=== PATIENT | male | born 2000 | race Caucasian/White ===

== ENCOUNTER 2025-06-02 13:16 | Emergency (ER) | payer MEDICAID, SELFPAY ==
[2025-06-02] VITALS (10 sets, daily range): BP systolic 122–162; BP diastolic 51–98; PULSE 111–145; RESP 16–24; TEMP 36.8–38.9; O2SAT 93–97; BMI 38.3
--- NOTE | ~2025-06-02 | XR_ITS ---
EXAMINATION: XR CHEST CLINICAL INFORMATION: cough COMPARISON: None available. TECHNIQUE: Frontal view of the chest was obtained. FINDINGS: The cardiac, hilar, and mediastinal contours are normal. The lungs are clear bilaterally. No pneumothorax or effusion. No focal osseous or soft tissue abnormality. XR/XR chest 1V IMPRESSION: No active pulmonary disease. Electronically signed by: Moustapha Tucker MD 06/02/2025 04:05 PM [facility]
--- NOTE | 2025-06-02 13:27 | ED_ITS ---
HPI - URI/Sore Throat General Chief Complaint: General Medical Stated Complaint: cough x1 month,weakness x1 week Time Seen by Provider: 06/02/25 15:48 Source: patient, EMS, RN notes reviewed and old records reviewed Mode of arrival: EMS Limitations: no limitations History of Present Illness ED Provider: LAVERN Mcclelland HPI Narrative: 25-year-old male with medical history of asthma presents to the ED due to 1 month of productive cough, with general malaise, body aches beginning 1 week ago. Patient states he woke up this morning feeling dizzy, With chills, and mildly short of breath after coughing fit. Patient states he is experiencing a sharp central chest pain only when coughing, patient does not have any chest pain while at rest, or with movement outside of coughing. denies headache, visual changes,abdominal pain, nausea, vomiting, diarrhea, urinary symptoms Related Data Previous Rx's ?Medication ?Instructions ?Recorded albuterol sulfate 90 mcg/actuation 2 inh inhalation Q4 H PRN shortness 06/02/25 breath activated powder inhaler of breath or wheezing #1 ea prednisone 20 mg tablet 40 mg (2 x 20 mg) PO DAILY # 10 tabs 06/02/25 Allergies Allergy/AdvReac Type Severity Reaction Status Date / Time aspirin (ASPIRIN) Allergy Unknown SWELLING Verified 06/02/25 13:30 nut - unspecified (NUTS) Allergy Unknown RASH Verified 06/02/25 13:30 zolpidem (From AMBIEN) Allergy Unknown SUICIDAL Verified 06/02/25 13:30 Review of Systems 2 Review of Systems: Yes all other systems are reviewed and are negative PMFSH Past Medical History Source: old records reviewed and nursing notes reviewed Social History Social History Smoked in Last 30 Days: Yes Use of substances other than those prescribed or required for medical reasons: Yes Substance Use Type: Marijuana Advance Directives: No Advance Directives Information Provided: No Physical Exam 2 Vital Signs: Vital Signs: Last Vital Signs Temp 102.0 F H 06/02/25 18:31 Pulse 122 H 06/02/25 18:45 Resp 16 06/02/25 18:45 BP 129/51 L 06/02/25 18:31 Pulse Ox 97 12/31/25 18:45 O2 Del Method Room Air 12/31/25 18:45 BMI result Body Mass Index 38.3 GENERAL APPEARANCE: ?AxOx4, fatigued appearing, no acute distress. HEENT: ?NC, AT. MMM. EOMI, clear conjunctiva, oropharynx clear. NECK: ?Supple without lymphadenopathy.? No stiffness or restricted ROM. HEART:? tachycardic rate and regular rhythm, normal S1/S2, no m/r/g LUNGS: diminished breath sounds of bilateral lung bases with mild rhonchi, no wheeze appreciated, mild increased work of breathing ABDOMEN: ?Soft, nontender, nondistended with good bowel sounds heard. BACK: No CVAT, no obvious deformity. EXTREMITIES: ?Without cyanosis, clubbing or edema. NEUROLOGICAL: ?Grossly nonfocal. Alert and oriented, moving all 4 extremities. Observed to ambulate with normal gait. Skin: ?Warm and dry without any rash. Course Course Course Narrative: This is a Rapid Medical Exam performed in triage by Lizeth Castro PA-C. Full HPI, ROS and PE to be performed by primary ED provider. 25 yo M presenting to the ED c/o dry cough x1 month & weakness x1 week. Admits to post-tussive emesis this AM w/bloody steaks. Also reports LLQ abd pain, N, CP w/cough & SOB PE: NAD, talking in complete sentences, abdomen is soft and nontender, no rebound or guarding Plan: EKG, labs, viral testing, rapid strep, UA Reevaluation(s) Reevaluation #1: The patient has seemed in sign-out at change of shift pending re-evaluation and dispo. He was diagnosed with influenza, heart rate has been improved to about 118 and sinus. Remains regular. He was given bronchodilators and does have a viral illness causing the tachycardia. I have a low suspicion for pulmonary embolism at this time. The patient reports feeling much better, I think he can safely be discharged we will give him prednisone and a refill of his albuterol inhaler as reports he does not have any at home. Time: 19:35 Medications Administered Discontinued Medications Generic Name Dose Route Start Last Admin Trade Name Freq PRN Reason Stop Dose Admin Albuterol Sulfate 2.5 mg/ 0 mg 06/02/25 16:23 06/02/25 16:26 Albuterol/Ipratropium 3 ml INHALE 12/31/25 16:24 1 dose ONCE ONE Administration Lactated Ringer's 1,000 mls @ 999 mls/hr 06/02/25 16:11 06/02/25 17:36 Lr IV 06/02/25 17:11 Infused .Q1H1M ONE Infusion Magnesium Sulfate 2 gm in 50 mls @ 150 mls/hr 06/02/25 16:11 06/02/25 17:06 Magnesium Sulfate/H2o IV 06/02/25 16:30 Infused ONCE ONE Infusion Acetaminophen 1,000 mg in 100 mls @ 400 mls/hr 06/02/25 16:11 06/02/25 17:30 Ofirmev IV 06/02/25 16:25 Infused ONCE ONE Infusion Lactated Ringer's 1,000 mls @ 999 mls/hr 06/02/25 17:20 06/02/25 18:32 Lr IV 06/02/25 18:20 Infused .Q1H1M ONE Infusion Ketorolac Tromethamine 15 mg 06/02/25 18:31 06/02/25 18:45 Ketorolac Tromethamine 15 Mg/Ml Vial IVPUSH 06/02/25 18:32 15 mg ONCE ONE Administration Methylprednisolone Sodium Succinate 60 mg 06/02/25 16:11 06/02/25 16:38 Methylprednisolone Sod Succ 125 Mg/2 Ml Vial IVPUSH 06/02/25 16:12 60 mg ONCE ONE Administration Medical Decision Making Medical Decision Making MDM Narrative: 25-year-old male with medical history of asthma presents to the ED due to 1 month of productive cough, with general malaise, body aches beginning 1 week ago. Patient states he woke up this morning feeling dizzy, With chills, and mildly short of breath after coughing fit. Patient states he is experiencing a sharp central chest pain only when coughing, patient does not have any chest pain while at rest, or with movement outside of coughing. Patient has not used albuterol inhaler as he does not have any at home, does not have PCP for follow up. VS on initial observation - BP 137/90, pulse rate of 114, respiratory rate of 20, afebrile with oral temp of 98.2?, O2 saturation 97% on room air. on physical exam patient is fatigued appearing, lungs with diminished breath sounds of bilateral lung bases, without wheeze, mild increased work of breathing, cardiac exam reveals tachycardic rate and rhythm without murmurs/ rubs /gallops, abdomen is soft, nondistended, no rigidity, nontender, lower extremities without swelling - Patient medicated with 2 L IV fluids, 1 g IV Tylenol, 60 mg IV Solu-Medrol, 2 mg IV magnesium, 2.5 mg albuterol sulfate with respiratory therapy EKG reveals sinus tachycardia without ST-elevation / depression, dysrhythmia, lengthened QT labs without leukocytosis/leukopenia, no evidence of anemia, no electrolyte abnormalities viral serology positive for influenza A Course: 18:00- Patient has persistently tachycardic, I went to the room to evaluate him and he was mildly diaphoretic, and warm oral temp revealed a temperature of 99.9? however I obtain a rectal temperature which revealed fever of 102.0, this is after administration of 1 g IV Tylenol, 2 L IV fluids. I medicated patient with 15 mg IV Toradol for correction. Patient is currently being signed out to my colleague Michele Deleon PA-C who will reassess the patient to ensure resolution of tachycardia and decide if admission is needed. This has been discussed with the patient who is in agreement with the plan. Differential Diagnosis Differential Diagnoses: The differential diagnosis associated with the presentation includes flu COVID RSV Pneumonia Dysrhythmia Lab Data MDM Lab Attestation statement: I reviewed the patient's lab results. 06/02/25 13:47 06/02/25 13:47 Labs: Lab Results 06/02/25 06/02/25 06/02/25 Range/Units 13:41 13:42 13:47 WBC 8.9 (4.8-10.8) X10*3/uL RBC 5.82 H (4.60-5.80) X10*6/uL Hgb 15.5 (14.0-18.0) g/dl Hct 46.3 (42.0-52.0) % MCV 79.6 L (80.0-98.0) fL MCH 26.6 L (27.0-33.0) pg MCHC 33.5 (31.0-36.0) g/dl RDW 14.1 (11.0-16.0) % Plt Count 204 (160-400) X10*3/uL MPV 10.6 (9.4-12.4) fL Immature Gran % (Auto) 0.4 (0.0-0.4) % Neut % (Auto) 84.3 H (45-73) % Lymph % (Auto) 5.3 L (20-40) % [place] % (Auto) 9.6 (2-11) % Eos % (Auto) 0.1 (0-4) % Baso % (Auto) 0.3 (0-2) % Lymph # (Auto) 0.5 L (1.2-4.9) X10*3/uL [place] # (Auto) 0.9 (0.1-1.2) X10*3/uL Eos # (Auto) 0.0 (0.0-0.4) X10*3/uL Baso # (Auto) 0.0 (0.0-0.2) X10*3/uL Abs Immat Gran (auto) 0.04 H (0.00-0.03) X10*3/uL Absolute Neuts (auto) 7.5 (2.0-8.3) x10*3/uL Absolute Nucleated RBC 0.000 (0.0-0.012) X10*3/uL Nucleated RBC % (auto) 0.0 (0.0-0.2) /100WBC Sodium 136 (135-145) mmol/L Potassium 4.1 (3.3-5.1) mmol/L Chloride 103 (96-108) mmol/L Carbon Dioxide 25 (22-29) mmol/L Anion Gap 12 (12-20) BUN 10 (9-16) mg/dL Creatinine 1.01 (0.5-1.4) mg/dL Estim Creat Clear Calc 123.2 Estimated GFR > 60 Random Glucose 98 (60-115) mg/dL Calcium 9.0 (8.4-10.2) mg/dL Magnesium 1.8 (1.6-2.6) mg/dL Total Bilirubin 0.6 (0.0-1.0) mg/dL Direct Bilirubin 0.2 (0.0-0.5) mg/dL AST 35 (5-37) U/L ALT 29 (0-40) U/L Alkaline Phosphatase 96 (39-117) U/L Total Protein 7.6 (6.5-8.0) g/dL Albumin 4.6 (3.5-5.0) g/dL Lipase 9 (8-78) U/L Urine Color Urine Appearance Urine pH (5.0-9.0) Ur Specific [place] (1.005-1.025) Urine Protein (Neg-Trace) mg/dL Urine Glucose (UA) (Negative) mg/dL Urine Ketones (Negative) mg/dL Urine Blood (Negative) Urine Nitrite (Negative) Ur Leukocyte Esterase (Negative) Influenza Type A (PCR) POSITIVE A (Negative) Influenza Type B (PCR) NEGATIVE (Negative) RSV RNA Qual (PCR) NEGATIVE (Negative) SARS-CoV-2 RNA (RT-PCR) NEGATIVE (Negative) S. pyogenes GrpA ADALI Negative (Negative) 06/02/25 Range/Units 17:03 WBC (4.8-10.8) X10*3/uL RBC (4.60-5.80) X10*6/uL Hgb (14.0-18.0) g/dl Hct (42.0-52.0) % MCV (80.0-98.0) fL MCH (27.0-33.0) pg MCHC (31.0-36.0) g/dl RDW (11.0-16.0) % Plt Count (160-400) X10*3/uL MPV (9.4-12.4) fL Immature Gran % (Auto) (0.0-0.4) % Neut % (Auto) (45-73) % Lymph % (Auto) (20-40) % [place] % (Auto) (2-11) % Eos % (Auto) (0-4) % Baso % (Auto) (0-2) % Lymph # (Auto) (1.2-4.9) X10*3/uL [place] # (Auto) (0.1-1.2) X10*3/uL Eos # (Auto) (0.0-0.4) X10*3/uL Baso # (Auto) (0.0-0.2) X10*3/uL Abs Immat Gran (auto) (0.00-0.03) X10*3/uL Absolute Neuts (auto) (2.0-8.3) x10*3/uL Absolute Nucleated RBC (0.0-0.012) X10*3/uL Nucleated RBC % (auto) (0.0-0.2) /100WBC Sodium (135-145) mmol/L Potassium (3.3-5.1) mmol/L Chloride (96-108) mmol/L Carbon Dioxide (22-29) mmol/L Anion Gap (12-20) BUN (9-16) mg/dL Creatinine (0.5-1.4) mg/dL Estim Creat Clear Calc Estimated GFR Random Glucose (60-115) mg/dL Calcium (8.4-10.2) mg/dL Magnesium (1.6-2.6) mg/dL Total Bilirubin (0.0-1.0) mg/dL Direct Bilirubin (0.0-0.5) mg/dL AST (5-37) U/L ALT (0-40) U/L Alkaline Phosphatase (39-117) U/L Total Protein (6.5-8.0) g/dL Albumin (3.5-5.0) g/dL Lipase (8-78) U/L Urine Color Yellow Urine Appearance Clear Urine pH 5.5 (5.0-9.0) Ur Specific [place] <= 1.005 (1.005-1.025) Urine Protein Negative (Neg-Trace) mg/dL Urine Glucose (UA) Negative (Negative) mg/dL Urine Ketones Negative (Negative) mg/dL Urine Blood Negative (Negative) Urine Nitrite Negative (Negative) Ur Leukocyte Esterase Negative (Negative) Influenza Type A (PCR) (Negative) Influenza Type B (PCR) (Negative) RSV RNA Qual (PCR) (Negative) SARS-CoV-2 RNA (RT-PCR) (Negative) S. pyogenes GrpA ADALI (Negative) Independent Interpretation I performed an independent interpretation of an: EKG and Plain X-Ray Interpretation: I personally interpreted the EKG which reveals sinus tachycardia without ST- elevation/depression, dysrhythmia, lengthened QT Vent. Rate : 129 BPM Atrial Rate : 129 BPM P-R Int : 128 ms QRS Dur : 82 ms QT Int : 280 ms P-R-T Axes : 56 24 64 degrees QTcB Int : 410 ms Sinus tachycardia Nonspecific T wave abnormality Abnormal ECG No previous ECGs available CXR without infiltrates, consolidations, pneumothorax, pulmonary congestion, I agree with the radiologist's interpretation Radiology Impression Discussion of test interpretation with radiology: I have reviewed the radiologist's reading. Radiologist Impression: CXR FINDINGS: The cardiac, hilar, and mediastinal contours are normal. The lungs are clear bilaterally. No pneumothorax or effusion. No focal osseous or soft tissue abnormality. XR/XR chest 1V IMPRESSION: No active pulmonary disease. Electronically signed by: Moustapha Tucker MD 06/02/2025 04:05 PM [facility] Dictated By: Moustapha Tucker MD Signed By: <Electronically signed by Moustapha Tucker MD in OV> 06/02/25 1605 External Record Review External record reviewed: Inpatient record, Office record and Outpatient record Chronic Conditions Patient?s care impacted by: Other ( asthma) Discharge Plan Discharge Clinical Impression: Influenza A Patient Disposition: Home, Self-Care Instructions: Influenza (ED) Additional Instructions: You tested positive for influenza A. Take prednisone 40 mg daily for the next 5 days. Use your albuterol inhaler as needed pain Return for new or worsening symptoms. Prescriptions: New prednisone 20 mg tablet 40 mg PO DAILY Qty: 10 0RF albuterol sulfate 90 mcg/actuation aerosol powdr breath activated 2 inh inhalation Q4H PRN (Reason: shortness of breath or wheezing) Qty: 1 0RF Referrals: [facility] [place] [facility] [Provider Group, Bariatric Surgery] [facility] [Provider Group] Referral Note: needs new PCP Print Language: Mozambican
--- NOTE | 2025-06-02 13:29 | ECG_ITS ---
Test Reason : TACHY Blood Pressure : */* mmHG Vent. Rate : 129 BPM Atrial Rate : 129 BPM P-R Int : 128 ms QRS Dur : 82 ms QT Int : 280 ms P-R-T Axes : 56 24 64 degrees QTcB Int : 410 ms Sinus tachycardia Nonspecific T wave abnormality Abnormal ECG No previous ECGs available Referred By: Lizeth Castro Electronically Signed By: NOEMY PRADO
[2025-06-02 13:54] LABS: MANUAL DIFF FLAG NO
[2025-06-02 14:05] LABS: Hematocrit 46.3 % (42.0-52.0); Hemoglobin 15.5 g/dl (14.0-18.0); Imm Gran Abs Auto 0.04 X10*3/uL (0.00-0.03); Imm Gran Pct Auto 0.4 % (0.0-0.4); Lymphocytes Absolute Auto 0.5 X10*3/uL (1.2-4.9); Mean Corpuscular HGB Conc 33.5 g/dl (31.0-36.0); Mean Corpuscular Hemoglobin 26.6 pg (27.0-33.0); Mean Corpuscular Volume 79.6 fL (80.0-98.0); NRBC Abs Auto 0.000 X10*3/uL (0.0-0.012); NRBC Pct Auto 0.0 /100WBC (0.0-0.2); Platelet Count 204 X10*3/uL (160-400); Red Blood Count 5.82 X10*6/uL (4.60-5.80); White Blood Count 8.9 X10*3/uL (4.8-10.8)
[2025-06-02 14:13] LABS: Alanine Aminotransferase 29 U/L (0-40); Albumin Level 4.6 g/dL (3.5-5.0); Alkaline Phosphatase 96 U/L (39-117); Anion Gap 12 (12-20); Aspartate Amino Transferase 35 U/L (5-37); Blood Urea Nitrogen 10 mg/dL (9-16); Calcium 9.0 mg/dL (8.4-10.2); Carbon Dioxide 25 mmol/L (22-29); Chloride 103 mmol/L (96-108); Creatinine Clr Calc Pharmacy 123.2; Estimated Glomerular Filt Rate > 60; Lipase 9 U/L (8-78); Magnesium 1.8 mg/dL (1.6-2.6); Potassium 4.1 mmol/L (3.3-5.1); Sodium 136 mmol/L (135-145); Total Protein 7.6 g/dL (6.5-8.0)
[2025-06-02 14:23] LABS: IDNOW Serial# 58CA691E; Strep A Nucleic Acid Negative (Negative)
[2025-06-02 14:36] LABS: Resp Syncy Virus RNA Qual PCR NEGATIVE (Negative); SARS COV2 PCR INHOUSE NEGATIVE (Negative)
[2025-06-02] MEDS: Albuterol Sulfate 2.5 MG, Albuterol/Iprat 2.5/0.5MG 3 ML 3 ML INHALE (16:26)
[2025-06-02] MEDS: Lactated Ringers 1,000 ML 999 ML IV ×2 (16:37→17:30)
[2025-06-02] MEDS: Magnesium Sulfate/H2O 2 GM/50 ML PIGGYBACK IV (16:39)
--- NOTE | 2025-06-02 16:43 | PC.NURSE ---
IV placed right forearm. pt states that he has had a cough for over a month but he was ignoring it and about a week ago he stared feeling very weak. hx of asthma. smoker of cigarettes and thc sinus tach on tele rate in 130s.
[2025-06-02 17:18] LABS: Appearance Urine Clear; Glucose Urine UA Negative (Negative); PH 5.5 (5.0-9.0); Specific Gravity - Urine <= 1.005 (1.005-1.025)
--- NOTE | 2025-06-02 17:30 | PC.NURSE ---
pt reports improvement in SOB after treatment, remains tachy on tele 130s-140s 2nd liter of LR infusing
== END 2025-06-02 20:06 | disposition home or self-care (01) ==
PROVIDERS: Physician Assistant; Emergency Provider Emergency Medicine Emergency Medical Services
DX: J10.1 Influenza due to other identified influenza virus with other respiratory manifestations (principal); R00.0 Tachycardia, unspecified; J45.909 Unspecified asthma, uncomplicated; Z79.899 Other long term (current) drug therapy; Z03.818 Encounter for observation for suspected exposure to other biological agents ruled out
CPT/HCPCS: 71045; 80048; 80076; 81003; 83690; 83735; 85025; 87637; 87651; 93005; 94640; 96361; 96365; 96375; 99284; 99285; J0131; J1885; J2919; J3475; J7120

== ENCOUNTER → 2025-06-02 13:29 | Outpatient (BNV) | payer MEDICAID, SELFPAY | PROVIDERS: Emergency Provider Emergency Medicine Emergency Medical Services; Visit Provider Internal Medicine | DX: R00.0 Tachycardia, unspecified (principal) | CPT/HCPCS: 93010 ==

== ENCOUNTER → 2025-06-02 15:52 | Outpatient (BNV) | payer MEDICAID, SELFPAY | PROVIDERS: Emergency Provider Emergency Medicine Emergency Medical Services; Visit Provider Radiology Diagnostic Radiology | DX: R05.9 Cough, unspecified (principal) | CPT/HCPCS: 71045 ==